=== PATIENT | female | born 1940 | race Caucasian/White ===

== ENCOUNTER 2017-06-15 15:48 | Inpatient (IN) | payer MEDICARE ==
[~2017-06-15] VITALS: Ht 160 cm; Wt 84.2 kg
--- NOTE | ~2017-06-15 | DS ---
PATIENT'S NAME: ANUP HOBSON [facility] AGE: 77 Y [address] ROOM: [id number] [place], [place] [address] LOCATION: GPCU ADMIT DATE: 06/15/2017 Discharge Summary DISCHARGE DATE: FAMILY PHYSICIAN: Eric Taveras MD ATTENDING PHYSICIAN: Deborah Sebastian PRINCIPAL DIAGNOSES: 1. Acute hypoxic respiratory failure. 2. Left lower lobe pneumonia. 3. Reactive airway disease. 4. Essential hypertension. 5. Sjogren's syndrome. 6. Peripheral neuropathy. HISTORY OF PRESENT ILLNESS: A 77-year-old lady presented with shortness of breath to our hospital. Initial chest x-ray was done, did not reveal any pneumonia. CT scan of the chest with PE protocol was done, which did not reveal any PE, but did reveal left lower lobe pneumonia. She was started on antibiotics including ceftriaxone and Levaquin. She was also found to have pretty significant expiratory wheezes. She was treated with prednisone as well as Symbicort as well as DuoNebs. She improved during the course of hospitalization. Echocardiography was also done in the hospital, which did not reveal any systolic cardiac or diastolic cardiac dysfunction. She was also found to have ERIC in the hospital, and after intravenous fluid resuscitation, kidney function recovered. Her blood pressure has been on the higher side in the hospital going up to systolic 200s. She was started on amlodipine 10 mg p.o. every day in addition to her home dose of lisinopril 10 mg. She will be discharged home with a followup with her primary care physician. She will take Augmentin for 4 more days as well as prednisone for 4 more days. I will also discharge her with some albuterol for p.r.n. shortness of breath. I am not exactly sure that this reactive airway disease is asthma or COPD. Arterial blood gases did not reveal any obstruction. I would recommend to establish care with Gas Scrubber Operator if these symptoms do not resolve or happen again. DISCHARGE MEDICATIONS: 1. Augmentin 875/125 p.o. b.i.d. 2. Prednisone 60 mg p.o. daily for 4 days. 3. Amlodipine 10 mg p.o. daily for 30 days, 30-day supply. 4. Lisinopril 10 mg p.o. every day. 5. Codeine and guaifenesin 5 mL p.o. every 4 hours. 6. Mycophenolate 500 mg p.o. twice daily. 7. Trileptal 300 mg p.o. twice daily. 8. Omeprazole 40 mg p.o. every day. 9. Paxil 40 mg p.o. every day. PATIENT'S NAME: ANUP HOBSON [facility] AGE: 77 Y [address] ROOM: [place] [address] LOCATION: [facility] ADMIT DATE: 06/15/2017 Discharge Summary DISCHARGE DATE: FAMILY PHYSICIAN: Eric Taveras MD ATTENDING PHYSICIAN: Deborah Sebastian 10. Prednisone 60 mg p.o. for 4 more days. 11. Pregabalin 150 mg p.o. twice daily. 12. Temazepam 30 mg p.o. every night at bedtime. 13. CPAP. 14. Lasix was discontinued. 15. Claritin 10 mg p.o. every day p.r.n. 16. Tylenol 1 g p.o. every 6 hours p.r.n. 17. Vitamin B complex. 18. Docusate 100 p.o. everyday p.r.n. 19. Armodafinil 250 mg p.o. every day. 20. Amitiza 24 mcg p.o. as needed p.r.n. for constipation. 21. Albuterol as needed. ACTIVITY: As tolerated. DIET: Low-sodium diet. FOLLOWUP: With primary care physician in 1 week. To establish care with Dr. Donnelly. MD CHELSY SEGUNDO/tamiko /[id number] d: 06/17/172234 t: 06/23/17900, DISCHARGE SUMMARY
--- NOTE | ~2017-06-15 | HP ---
PATIENT'S NAME: ANUP HOBSON [facility] AGE: 77 Y [address] ROOM: [place] [address] LOCATION: GPCU ADMIT DATE: 06/15/2017 History & Physical DISCHARGE DATE: FAMILY PHYSICIAN: Eric Taveras MD ATTENDING PHYSICIAN: Deborah SIMMONS DATE OF SERVICE: CHIEF COMPLAINT: Shortness of breath. HISTORY OF PRESENT ILLNESS: The patient is a 77-year-old female with past medical history of obesity; Sjogren syndrome; autoimmune disorder, nonspecific; and hypertension, who presents here with shortness of breath. The patient reports that for the past week she has been experiencing initially dry cough and shortness of breath. The patient was seen by her primary care physician initially, was given Mucomyst. However, symptoms did not improve when she visited her primary care physician on Friday and was started on Levaquin and was given a shot of steroids. The patient reports that her symptoms did not improve. She now complains of yellow productive cough and worsening of shortness of breath. The patient reports of dyspnea on exertion. Also reports of orthopnea. She also reports that she has severe cough when she lay flat. She reports of chills and a subjective fever. Denies having a high temperature at home. She denies any chest pain, headache, abdominal pain, nausea, vomiting, diarrhea, or vision change, motor and sensory changes. Of note, daughter reports the patient's blood pressure has also been high and noted to have a systolic blood pressure in the 200s at home. PAST MEDICAL HISTORY: 1. Hypertension. 2. Sjogren disorder. 3. Peripheral neuropathy. 4. Obesity. 5. Nonspecific autoimmune disorder. PAST SURGICAL HISTORY: 1. She has cholecystectomy. 2. Right shoulder joint replacement. 3. Two hip surgeries. FAMILY HISTORY: Father had kidney disease, and mother had Alzheimer disease. PATIENT'S NAME: ANUP HOBSON [facility] AGE: 77 Y [address] ROOM: [place] [address] LOCATION: GPCU ADMIT DATE: 06/15/2017 History & Physical DISCHARGE DATE: FAMILY PHYSICIAN: Eric Taveras MD ATTENDING PHYSICIAN: Deborah SIMMONS SOCIAL HISTORY: She has a history of smoking, but quit 40 years ago. She drinks a glass of wine occasionally, and she is a retired dental office admin. MEDICATIONS: Currently being reconciled. REVIEW OF SYSTEMS: All systems have been reviewed and are negative except for what I mentioned in the HPI. PHYSICAL EXAMINATION: VITAL SIGNS: Afebrile. Blood pressure 156/74, heart rate of 87, respiratory rate of 15, and saturating 87% on room air. GENERAL APPEARANCE: The patient is alert and awake, sitting on a chair, in no acute distress. HEENT: Head; normocephalic and atraumatic. Eyes; extraocular muscles intact. SKIN: Warm to touch. NOSE: No nasal discharge. MOUTH: Moist oral mucosa. CHEST: Bibasilar rales and mild expiratory wheezing. HEART: Regularly irregular. No murmurs, rubs, or gallops. ABDOMEN: Soft, nontender, and nondistended. Bowel sounds present. EXTREMITIES: Trace edema. MUSCULOSKELETAL: No obvious joint effusion noted. Range of motion intact. BROOD HATCHERY MANAGER: The patient is alert and oriented x3. Motor and sensory grossly intact. LABORATORY DATA: Lactate 1.1. ProBNP of 314. White blood cells of 5.2, hemoglobin 12.3, and hematocrit of 35.6. Creatinine of 0.6, sodium of 134, potassium 3.7, chloride of 101, and CO2 of 22. Procalcitonin is less than 0.05. EKG shows normal sinus rhythm. Chest x-ray findings; no vascular congestion or acute parenchymal infiltrate, possible right hemidiaphragm. Stable from compared to last one. ASSESSMENT AND PLAN: 1. Acute hypoxic respiratory failure. Etiology most likely secondary to reactive airway disease. We will start the patient on bronchodilator and a prednisone. We will hold antibiotic as procalcitonin is low and chest x-ray is not impressive for infiltrate. I suspect the patient might have underlying heart failure. Also even though proBNP is low, but the patient has a history of elevated blood pressure and also is obese. We will give a trial of Lasix 20 mg IV b.i.d. for two doses and we will PATIENT'S NAME: ANUP HOBSON [facility] AGE: 77 Y [address] ROOM: [place] [address] LOCATION: [facility] ADMIT DATE: 06/15/2017 History & Physical DISCHARGE DATE: FAMILY PHYSICIAN: Eric Taveras MD ATTENDING PHYSICIAN: Deborah SIMMONS follow the patient clinically. 2. Hypertension, uncontrolled. Continue lisinopril. We will add Lasix. 3. Obesity, ongoing. 4. Sjogren disease and also history of autoimmune disorder, nonspecific. Continue mycophenolate. 5. Peripheral neuropathy. Continue Lyrica. 6. Possible right-sided hemidiaphragm, somewhat pronounced than last chest x- ray. We will get a CT chest to further investigate. 7. Gastroesophageal reflux disease. The patient reports of history of reflex disorder. I suspect her symptoms might be worsening secondary to her gastroesophageal reflux disease. We will start the patient on Protonix 40 b.i.d. Greater than 70 minutes were spent on patient's care. Greater than 50% was spent on direct patient's care and discussion with the patient and family member. We will admit the patient as inpatient for acute hypoxic respiratory failure as she failed outpatient treatment. Code status was discussed on admission, code status is full code. DEBORAH SIMMONS MD DA/berthal /[id number] D: [id number] T: [id number] HISTORY & PHYSICAL
--- NOTE | ~2017-06-15 | ER ---
PATIENT'S NAME: ANUP HOBSON [facility] AGE: 77 Y [address] ROOM: [place] [address] LOCATION: GPCU ADMIT DATE: 06/15/2017 ER/Outpatient Report DISCHARGE DATE: FAMILY PHYSICIAN: Eric Taveras MD ATTENDING PHYSICIAN: Deborah SEBASTIAN Time of Arrival: 1548 hours. Time of Evaluation: 1548 hours. CHIEF COMPLAINT: Cough. HISTORY OF PRESENT ILLNESS: The patient reports that she started feeling ill a week ago. On 06/09/2017, she did go see Dr. Taveras, her primary provider. He started her on some Mucinex. Her symptoms persist, and she rechecked with him on 06/13/2017. At that time, they gave her a shot of steroids and diagnosed her with pneumonia, started her on Levaquin and gave her a prescription for Cheratussin, a cough syrup. She states that she continues to feel extremely short of breath. Her daughter states that she can hear wheezing. She has had productive cough of light yellow phlegm. She has felt fatigued, decreased appetite. She has felt feverish off and on at home. Does have some pain with inspiration but denies having any chest pain. ALLERGIES: SHE HAS NO KNOWN ALLERGIES. CURRENT MEDICATIONS: On her chart and reviewed by me. PAST MEDICAL HISTORY: Hypertension, Sjogren's disease, osteoporosis, back problems. PAST SURGICAL HISTORY: Cholecystectomy, bilateral inguinal hernia repairs, bilateral hips replaced, right shoulder surgery, and neck surgery. SOCIAL HISTORY: She lives at home alone. She quit smoking greater than 30 years ago. Drinks alcohol on a social basis only. Denies use of drugs. REVIEW OF SYSTEMS: All negative other than those mentioned in the HPI. PHYSICAL EXAMINATION: PATIENT'S NAME: ANUP HOBSON [facility] AGE: 77 Y [address] ROOM: [place] [address] LOCATION: GPCU ADMIT DATE: 06/15/2017 ER/Outpatient Report DISCHARGE DATE: FAMILY PHYSICIAN: Eric Taveras MD ATTENDING PHYSICIAN: Deborah SEBASTIAN VITAL SIGNS: Blood pressure initially was 202/92, pulse was 70, respirations 20, temperature of 98.5, O2 saturation was 93% on room air. GENERAL: She is awake, alert, and oriented x4. SKIN: [place], warm, and dry. RESPIRATIONS: Even and nonlabored. Lung sounds are coarse throughout. Expiratory wheezes audible. HEART: Regular rate and rhythm. ABDOMEN: Soft, nondistended. Bowel sounds are present. EMERGENCY DEPARTMENT COURSE: Lab work was drawn. CBC is within normal limits. Chem panel: Sodium is 135, potassium is 3.7, chloride 101. Her proBNP was 314. Her lactate was 1.1, and her procalcitonin was less than 0.05. EMERGENCY DEPARTMENT COURSE: Saline lock was initiated. She was given a DuoNeb breathing treatment, which did clear up the wheezing. She states that she was feeling better. Vital signs remained stable. Chest x-ray was completed and reviewed with Dr. Crook. No acute inflammation is seen. The patient states that she feels like she needs something to help her rest. She was given Valium 2 mg p.o. Continued to monitor her. Lung sounds were coarse. No wheezing was noted. I did repeat albuterol treatment. After the albuterol treatment, her O2 saturation did drop. She was encouraged to take deep breaths. Lung sounds were coarse. No wheezing, did not clear with cough. While sleeping, her O2 saturation did drop down to 85% on room air. The patient was aroused. O2 sats came up to 88%, 89%. Dr. Sebastian was contacted regarding the patient for admission for respiratory treatments and O2. He did ask that we get an EKG, shows sinus rhythm. He did come down and examined the patient and plans to admit her. IMPRESSION: 1. Hypoxia. 2. Bronchitis. PLAN: The patient will be admitted and cared for by the hospitalist. Her and her daughter verbalized understanding. CALEB CONTRERAS APRN FOR MD TIFAFNY BRISENO/tamiko PATIENT'S NAME: ANUP HOBSON [facility] AGE: 77 Y [address] ROOM: [place] [id number] LOCATION: [facility] ADMIT DATE: 06/15/2017 ER/Outpatient Report DISCHARGE DATE: FAMILY PHYSICIAN: Eric Taveras MD ATTENDING PHYSICIAN: Deborah SEBASTIAN /[id number] d: 06/15/177 t: 06/24/17911, OUTPATIENT REPORT
--- NOTE | ~2017-06-15 | ECHO ---
Transthoracic Echocardiography Report (TTE) Demographics Patient Name ANUP HOBSON Date of Study 06/16/2017 Patient Number [id number] Visit Number [id number] Date of 1940 Room Number G6316 Accession Number [id number] Gender Female Age 77 year(s) Referring Nitin Quintanilla MD Founding Partner Davon Naik RVT, Physician RDCS Physician Interpreting Aris Fernandes MD Bench Precision Assembler Physician Supervising Ordering Physician Jaz Cabrera MD/MLP Nurse Stress Shaft Tender Conclusions Contractility Score Summary Normal Left Ventricular contractility was noted. Summary The estimated left ventricular ejection fraction is 55-60%. Mild to moderate concentric left ventricular hypertrophy. Diastolic assessment reveals Grade I diastolic dysfunction. Mild mitral annular calcification. There is mild aortic stenosis by the Continuity Equation. The peak velocity is 2.84 m/s and the mean gradient is 19 mmHg. Mild pulmonic valve regurgitation by color Doppler. Procedure Type of Study TTE procedure:2D Echocardiogram. Procedure Date Date: 06/16/2017 Start: 07:33 AM Study Location: Inpatient Portable Technical Quality: Adequate visualization Indications:CHF. Appropriate Use Criteria: 8 Patient Status: Routine Rhythm: NSR HR: 82 bpm BP: 117/65 mmHg M-Mode/2D Measurements LV Diastolic Dimension: 4.16 cm LV Systolic Dimension: 2.4 cm LV Septum Diastolic: 1.73 cm LV PW Diastolic: 1.34 cm AO Root Dimension: 2.4 cm Cardiac Output: 8.86 l/min AV Cusp Separation: 2 cm RV Diastolic Dimension: 3.15 cm LA volume: 46 ml LVOT: 2.1 cm RV Base: 2.99 cm LVOT VTI: 31.2 cm RV Mid: 2.03 cm LV Stroke volume: 108.01 ml TAPSE: 2.11 cm TDI-S': 13.9 cm/s Doppler Measurements AV Peak Velocity: 2.84 m/s MV Peak E-Wave: 0.9 m/s AV Peak Gradient: 32.26 mmHg MV Peak A-Wave: 1.56 m/s AV Mean Gradient: 19 mmHg MV E/A Ratio: 0.58 LVOT Peak Velocity: 1.46 m/s MV P1/2t: 133 msec TR Gradient:25.6 mmHg PV Peak Velocity: 1.03 m/s Estimated RAP:5 mmHg PV Peak Gradient: 4.24 mmHg Estimated RVSP: 31 mmHg Estimated PASP: 30.6 mmHg E' Septal Velocity: 0.03 m/s A' Septal Velocity: 0.07 m/s E' Lateral Velocity: 0.04 m/s A' Lateral Velocity: 0.13 m/s Findings Left Ventricle Mild to moderate concentric left ventricular hypertrophy. Diastolic assessment reveals Grade I diastolic dysfunction. Right Ventricle Normal right ventricle structure and function. Left Atrium Normal left atrial size. Right Atrium Normal right atrial size. IVC measures 2.21 cm with inspiratory collapse. Mitral Valve Mild mitral annular calcification. Mild mitral regurgitation by color Doppler. Aortic Valve There is mild aortic stenosis by the Continuity Equation. The peak velocity is 2.84 m/s and the mean gradient is 19 mmHg. Tricuspid Valve Normal tricuspid valve structure and function. Pulmonic Valve Mild pulmonic valve regurgitation by color Doppler. Pericardial Effusion No evidence of pericardial effusion. Miscellaneous Visualized portions of the aortic root and ascending aorta appear normal in size. Pleural Effusion No evidence of pleural effusion. Contractility Score LV regional wall motion:(0-Non visualized 1-Normal 2-Hypokinesis 3-Akinesis 4-Dyskinesis 5-Aneurysm) Signature dtt: Dom Hurst (cardio) dtd: 06/16/17 0733 Physician Self Edit
--- NOTE | ~2017-06-15 | PUL ---
PATIENT'S NAME: ANUP HOBSON [facility] AGE: 77 Y [address] ROOM: [place] [address] [facility] ADMIT DATE: 06/15/2017 Pulmonary DISCHARGE DATE: 06/18/2017 FAMILY PHYSICIAN: Eric Taveras MD ATTENDING PHYSICIAN: Deborah SIMMONS NAME OF PROCEDURE: Bedside Spirometry DATE OF PROCEDURE: June 17, 2017 TECH: TMeents, ANIMAL COP REASON FOR EXAM: Shortness of breath RESULTS: FVC was 1.22 liters which is 47% of predicted and low, FEV1 was 0.76 liters which is 39% of predicted and low, and FEV1/FVC was 62.3% and low. The flow volume curve revealed significant airflow limitation. After bronchodilator administration FVC increased to 1.45 liters which is a 19% increase and FEV1 increased to 1.04 liters which is a 37% increase. FEV1/FVC was 72.1% PHYSICIAN INTERPRETATION: The patient has severe airflow limitation with a positive bronchodilator response. MD RONNELL ARIZA/william /[id number] dtt: 06/19/17 0854 CIARA RADU F dtd: 06/18/17 1426
[~2017-06-15 15:48] MED LIST: ADVIL200 MG PO; ALEVE220 MG PO; ALIGN4 MG PO; AMITIZA24 MCG PO; B COMPLEX1 EACH PO; CIPRO500 MG PO; CLARITIN10 MG PO; COLACE100 MG PO; CPAP INH; DILAUDID2 MG PO; FLORASTOR250 MG PO; LASIX20 M1 PO; LYRICA 150MG C150 MG PO; MULTIVITAMINS1 EAC1 PO; NEURONTIN300 MG PO; NUVIGIL250 MG PO; OMEPRAZOLE40 MG PO; PAXIL40 M1 PO; PRINIVIL OR ZES10 MG PO; RESTORIL30 MG PO; TRILEPTAL300 MG PO; TYLENOL EXTRA500 MG PO; TYLENOL325 MG PO; VALIUM2 M1 PO; [UNRECOGNIZED DRUG - OTHER] PO
[2017-06-15 16:12] LABS: BASOPHIL % 0.4 %; EOSINOPHIL # 0.1 K/uL (0.0-0.5); EOSINOPHIL % 1.5 %; HEMATOCRIT 35.6 % (33.0-46.0); HEMOGLOBIN 12.3 g/dL (10.0-15.0); IMMATURE GRANULOCYTE % 0.8 %; LYMPHOCYTE # 0.9 K/uL (0.8-4.0); MCH 32.3 pg (27.0-34.0); MCHC 34.6 gm/dL (32.0-36.5); MCV 93.4 fl (83.0-98.0); MONOCYTE # 0.4 K/uL (0.0-1.0); MONOCYTE % 7.9 %; MPV 9.4 fl (9.4-12.4); NEUTROPHIL # (ANC) 3.8 K/uL (1.8-7.8); NEUTROPHIL % 72.4 %; NRBC % 0 /100WBC (0-0.00); PLATELET COUNT 235 K/uL (150-450); RBC 3.81 M/uL (3.50-5.50); RDW-CV 12.7 % (11.9-14.6); WBC 5.2 K/uL (4.0-11.0)
[2017-06-15 16:32] LABS: ALBUMIN 4.1 gm/dL (3.5-5.0); ANION GAP 14.7 (10.0-19.0); CREATININE 0.6 mg/dL (0.5-1.1); POTASSIUM 3.7 mMol/L (3.7-5.1); TOTAL BILIRUBIN 0.5 mg/dL (0.0-1.5); TOTAL PROTEIN 8.4 g/dL (6.0-8.4)
--- NOTE | 2017-06-15 20:35 | NUR ---
Patient began not feeling well last about a week ago. Called primary care physician and got orders for prescription cough medication and mucinex. No improvement, patient went to clinic on Friday06/13/17. Patient given steriod shot and shot of antibiotics. [place] worse on Friday and worse again today Friday06/15/17. Patient did not take any of her home medications on Friday06/15/17. Patient presented to the emergency room hypertensive with pressures 200s/90s and oxygen sats in the 80%s on room air. Breathing treatment given and sats improved. Sats dropped again and patient admitted.
[2017-06-15] MEDS ORDERED: AMITIZA24 MCG PO (21:13)
[2017-06-15] MEDS ORDERED: CELLCEPT500 MG PO (21:14)
[2017-06-15] MEDS ORDERED: LUMIGAN 0.01%2.5 ML OPHTH (21:15)
[2017-06-15] MEDS ORDERED: LEVAQUIN500 MG PO (21:21)
[2017-06-15] MEDS ORDERED: CHERATUSSIN AC236 ML PO (21:21)
--- NOTE | 2017-06-16 05:35 | NUR ---
Significant Event: Patient alert and oriented. Up with standby assist. Denies pain. Hypertensive. Lisinopril 20 mg po given and pressures improved to 177/65. Oxygen at 3L per nasal cannula. CPAP at night with 3L as well. Pleasant and cooperative with cares. Rested well through out shift. Follow up: continue plan of care. CT and ECHO today
[2017-06-16 10:27] LABS: BASOPHIL % 0.3 %; EOSINOPHIL # 0.1 K/uL (0.0-0.5); EOSINOPHIL % 0.7 %; HEMATOCRIT 33.6 % (33.0-46.0); HEMOGLOBIN 11.3 g/dL (10.0-15.0); IMMATURE GRANULOCYTE # 0.1 K/uL (0.0-0.3); IMMATURE GRANULOCYTE % 0.7 %; LYMPHOCYTE # 0.8 K/uL (0.8-4.0); MCH 31.8 pg (27.0-34.0); MCHC 33.6 gm/dL (32.0-36.5); MCV 94.6 fl (83.0-98.0); MONOCYTE # 0.7 K/uL (0.0-1.0); MONOCYTE % 10.1 %; MPV 9.4 fl (9.4-12.4); NEUTROPHIL # (ANC) 5.3 K/uL (1.8-7.8); NEUTROPHIL % 77.2 %; NRBC % 0 /100WBC (0-0.00); PLATELET COUNT 221 K/uL (150-450); RBC 3.55 M/uL (3.50-5.50); RDW-CV 12.9 % (11.9-14.6); WBC 6.9 K/uL (4.0-11.0)
[2017-06-16 10:54] LABS: ALBUMIN 3.9 gm/dL (3.5-5.0); ANION GAP 13.2 (10.0-19.0); CALCIUM 9.2 mg/dL (8.5-10.5); MAGNESIUM 1.6 mg/dL (1.8-2.6); POTASSIUM 3.2 mMol/L (3.7-5.1); TOTAL BILIRUBIN 0.4 mg/dL (0.0-1.5); TOTAL PROTEIN 7.8 g/dL (6.0-8.4)
[2017-06-16 10:55] LABS: CREATININE 1.2 mg/dL (0.5-1.1)
[2017-06-16 13:27] LABS: BICARBONATE 23.7 mmol/L (18.0-23.0); PCO2 37 mmHg (35-45); PO2 63 mmHg (80-90)
--- NOTE | 2017-06-16 16:22 | NUR ---
Significant Event: pt on 1liter today. No labs this am, am lasix started pt had pvcs so stopped, K 3.2, 80meq iv today of K and 2g MG 1.6. Rocphin/levaquin for pneumonia. Pt home meds started this afternoon. HR 80s to 100s today. Echo done. Pt 1 asst . Follow up:
[2017-06-17 04:45] LABS: ANION GAP 11.9 (10.0-19.0); CALCIUM 8.6 mg/dL (8.5-10.5); CREATININE 0.9 mg/dL (0.5-1.1); POTASSIUM 3.9 mMol/L (3.7-5.1)
--- NOTE | 2017-06-17 06:48 | NUR ---
Significant Event: Patient is alert/oriented x3. Vital signs stable. On 1L O2 via NC during the day and CPAP on RA at night. Denies any pain. Follow up: Continue to monitor per plan of care.
--- NOTE | 2017-06-17 13:34 | NUR ---
Introduced self and care management services to patient. Lives in [place] alone, last spring. Reports she is feeling better today, thinking she might get to go home tomorrow. Denies concerns about going home on discharge, says her daughter lives in [place] and is a big help to her when needed. Will follow and assist with dc planning as needs identified.
--- NOTE | 2017-06-17 15:57 | NUR ---
Significant Event: Patient is alert and orientated x3. Currently on room air, sats at 91%. Keep off oxygen, IS 10x every hour. Clear in upper lobes. Diminished and crackles in bilateral bases. Sinus rhythm. Patient is able to void. Up in halls with stand by assist. IVs are saline locked. Regular diet. Follow up: Discharge home 06/18/17??
[2017-06-18 04:54] LABS: ANION GAP 12.6 (10.0-19.0); CALCIUM 8.6 mg/dL (8.5-10.5); CREATININE 0.7 mg/dL (0.5-1.1); POTASSIUM 3.6 mMol/L (3.7-5.1)
--- NOTE | 2017-06-18 05:00 | NUR ---
Significant event: A/O x 3. Up ad smitha. Walked in ortiz x 2. On ra. SBP higher the last 2 assessments in the 180's and 190's. No c/o pain. Plan to d/c home today.
[2017-06-18] MEDS ORDERED: NORVASC10 MG PO (13:05)
[2017-06-18] MEDS ORDERED: GUIATUSS AC (D480 ML PO (13:09)
[2017-06-18] MEDS ORDERED: DELTASONE20 MG PO (13:18)
[2017-06-18] MEDS ORDERED: AUGMENTIN 875-1 EACH PO ×2 (13:28→13:29)
[2017-06-18] MEDS ORDERED: PROVENTIL OR V6.7 GM INH (13:31)
--- NOTE | 2017-06-18 14:27 | NUR ---
PATIENT A/OX3, VSS ON ROOM AIR. TYLENOL GIVEN TODAY FOR COMPLAINTS OF A HEADACHE. PT. UP AD MAYO IN ROOM. WALKED IN HALLS TODAY WITH RT, SATS REMAINED >90%. IV'S REMOVED WITHOUT DIFFICULTLY. NEW MEDICATIONS, DISMISSAL INSTRUCTIONS GONE OVER WITH PATIENT AND DAUGHTER, NO FURTHER QUESTIONS AT THIS TIME. CHANGED F/U APTS. TO DEBORAH SUAREZ APRN & DR. HAWKINS PER PATIENTS REQUEST. ALL BELONGINGS SENT HOME WITH PATIENT.
== END 2017-06-18 14:30 | disposition disaster alternative care site (69) | DRG 189 ==
LOC: GMED 15:48 → GPCU 19:26
PROVIDERS: Internal Medicine; Internal Medicine Cardiovascular Disease; Nurse Practitioner Family; ADMIT Internal Medicine
DX: J96.01 Acute respiratory failure with hypoxia (principal); N17.9 Acute kidney failure, unspecified; J18.1 Lobar pneumonia, unspecified organism; G62.9 Polyneuropathy, unspecified; E87.1 Hypo-osmolality and hyponatremia; M35.00 Sjogren syndrome, unspecified; E87.6 Hypokalemia; I10 Essential (primary) hypertension; J40 Bronchitis, not specified as acute or chronic; K21.9 Gastro-esophageal reflux disease without esophagitis; Z86.2 Personal history of diseases of the blood and blood-forming organs and certain disorders involving the immune mechanism; Z87.891 Personal history of nicotine dependence
CPT/HCPCS: J0696; J1650; J1940; J2001; J3475; J3480; J7040; J7050; J7120; J7512; J7517

== ENCOUNTER → 2017-07-15 | Outpatient (CLI) | payer MEDICARE ==
[~2017-07-15] MED LIST changes: +AUGMENTIN 875-1 EACH PO; +CELLCEPT500 MG PO; +CHERATUSSIN AC236 ML PO; +DELTASONE20 MG PO; +GUIATUSS AC (D480 ML PO; +LEVAQUIN500 MG PO; +LUMIGAN 0.01%2.5 ML OPHTH; +NORVASC10 MG PO; +PROVENTIL OR V6.7 GM INH
--- NOTE | ~2017-07-15 | PUL ---
PATIENT'S NAME: ANUP HOBSON [facility] AGE: 77 Y [address] ROOM: [place], [place] [address] LOCATION: [facility] ADMIT DATE: 07/15/2017 Pulmonary DISCHARGE DATE: FAMILY PHYSICIAN: Eric Taveras MD ATTENDING PHYSICIAN: RYLEE HOUSTON NAME OF PROCEDURE: Pulmonary Function Test DATE OF PROCEDURE: July 15, 2017 TECH: SUSAN Alvarez REASON FOR EXAM: Shortness of breath PROCEDURES PERFORMED: Spirometry with bronchodilator assessment. Measurement of maximum voluntary ventilation. Measurement of lung volumes. Measurement of diffusion capacity. RESULTS: Spirometry showed pre bronchodilator FVC was 2.27 liters, 87% of predicted; post bronchodilator FVC was 2.55 liters, 98% of predicted. Pre bronchodilator FEV1 was 1.59 liters, 81% of predicted; post-bronchodilator FEV1 was 1.80 liters, 92% of predicted. FEV1/FVC was 72%, 94% of predicted. FEF 25-75% was 0.84 liters/second, 56% of predicted. Maximum voluntary ventilation was 42 liters/minute, 53% of predicted. The above data did improve following inhaled bronchodilator. Lung volumes show total lung capacity was 4.19 liters, 92% of predicted. Functional residual capacity, was 2.41 liters, 104% of predicted. Residual volume was 1.91 liters, 100% of predicted. DLCO not adjusted for hemoglobin was 66% of predicted. The single breath alveolar volume was 3.24 liters which is a poor estimate of the total lung capacity. Flow volume loop pattern is normal. IMPRESSION: The above data and corresponding flow volume curves are most compatible with borderline airflow obstruction which does respond to an inhaled bronchodilator, with mild gas transfer impairment with normal lung volumes. MD JORDYN MARTINEZ/william PATIENT'S NAME: ANUP HOBSON [facility] AGE: 77 Y [address] ROOM: [place], [place] [address] LOCATION: [facility] ADMIT DATE: 07/15/2017 Pulmonary DISCHARGE DATE: FAMILY PHYSICIAN: Eric Taveras MD ATTENDING PHYSICIAN: RYLEE HOUSTON /[id number] dtt: 07/24/17 1733 , RYLEE HOUSTON dtd: 07/21/17 1456
== END | disposition disaster alternative care site (69) ==
LOC: GRTH 07-14 13:00
DX: J44.9 Chronic obstructive pulmonary disease, unspecified (principal)